=== PATIENT | female | born 1955 | race American Indian/Alaskan Native ===

== ENCOUNTER 2022-04-20 17:19 | Inpatient (IN) | payer SELFPAY ==
--- NOTE | 2022-04-20 18:01 | Emergency Department Report ---
ED General Adult HPI - General Chief complaint: Dyspnea/Respdistress Stated complaint: SOB PUI?: No Time Seen by Provider: 04/20/22 18:00 Source: EMS ( EMS documentation not available at time of chart dictation ), RN notes reviewed Mode of arrival: Stretcher Limitations: Physical Limitation - History of Present Illness Initial comments: The patient was evaluated in the emergency department for symptoms described in the history of present illness. He/she was evaluated in the context of the global COVID-19 pandemic, which necessitated consideration that the patient might be at risk for infection with the virus that causes COVID-19. Institutional protocols and algorithms that pertain to the evaluation of patients at risk for COVID-19 are in a state of rapid change based on information released by regulatory bodies including the CDC and federal and state organizations. These policies and algorithms were followed during the patient's care in the emergency department. Please note that these policies, procedures and recommendations changed on a rapid basis. This is a 67-year-old female. She has a history of body mass index of approximately 35, chronic respiratory failure, A. fib on Xarelto, COPD, diabetes, hypertension and high cholesterol. She is COVID-19 vaccinated and reports that she has received her booster. She thinks that she has a history of atrial fibrillation. She presents to the department today with a complaint of shortness of breath, sensation that she has water on her lungs, cough, wheezing. She has abdominal cramping associate with coughing. She was given magnesium, albuterol and steroids by EMS prior to arrival. She denies headache, neck pain, chest pain, vomiting, diarrhea, urinary symptoms. She also denies hematemesis and bright red blood per rectum. She sleeps at home by herself. She does report that she snores. She thinks that she may have lower extremity swelling. She denies dietary indiscretions. She has ran out of a few of her medications. She may also have a history of CHF but she is not for certain. -: Gradual, days(s) Severity scale (0 -10): 0 Consistency: constant Improves with: medication Worsens with: movement - Related Data Allergies Allergy/AdvReac Type Severity Reaction Status Date / Time No Known Allergies Allergy Verified 04/20/22 17:32 ED Review of Systems ROS: Stated complaint: SOB Other details as noted in HPI Constitutional: malaise, weakness. denies: fever ENT: congestion Respiratory: cough, shortness of breath Cardiovascular: denies: chest pain Gastrointestinal: abdominal pain. denies: hematemesis, melena, hematochezia Genitourinary: denies: dysuria Musculoskeletal: myalgia Neurological: weakness Hematological/Lymphatic: other (Denies loss of taste and smell). denies: easy bleeding ED Past Medical Hx - Past Medical History Previous Medical History?: Yes Hx Congestive Heart Failure: Yes Hx COPD: Yes Additional medical history: AICD, AFIB - Surgical History Hx Internal Defibrillator: Yes ED Physical Exam - General Limitations: No Limitations General appearance: alert, anxious, obese - Head Head exam: Present: atraumatic, normocephalic - Eye Eye exam: Present: normal appearance, EOMI. Absent: nystagmus - ENT ENT exam: Present: normal exam, normal orophraynx, mucous membranes moist, normal external ear exam - Neck Neck exam: Present: normal inspection, full ROM. Absent: tenderness, meningismus - Respiratory Respiratory exam: Present: respiratory distress, rales, rhonchi. Absent: stridor - Cardiovascular Cardiovascular Exam: Present: regular rate, irregular rhythm, JVD. Absent: bradycardia, tachycardia, systolic murmur, diastolic murmur, rubs, gallop - GI/Abdominal GI/Abdominal exam: Present: soft. Absent: distended, tenderness, guarding, rebound, rigid - Extremities Exam Extremities exam: Present: normal inspection, full ROM, pedal edema, other (2+ pulses noted in the bilateral upper and lower extremities. There is no palpable cord. negative Homans sign. Muscular compartments are soft. The pelvis is stable.). Absent: calf tenderness - Back Exam Back exam: Present: normal inspection. Absent: tenderness, CVA tenderness (R), CVA tenderness (L), paraspinal tenderness, vertebral tenderness - Neurological Exam Neurological exam: Present: alert, other (No facial droop. Tongue midline. Extraocular movements intact bilaterally. Facial sensation intact to light touch in V1, V2, V3 distribution bilaterally. 5 and a 5 strength in 4 extremities. Sensation intact to light touch in 4 extremities.). Absent: motor sensory deficit - Skin Skin exam: Present: warm, dry, intact, normal color. Absent: rash ED Course Vital Signs 04/20/22 04/20/22 04/20/22 17:24 17:41 17:45 Temperature 97.7 F Pulse Rate 96 H 76 70 Pulse Rate [ Anterior Bilateral Throughout] Respiratory 19 37 H 31 H Rate Respiratory Rate [Anterior Bilateral Throughout] Blood Pressure 110/55 Blood Pressure 125/81 [Left] O2 Sat by Pulse 97 96 97 Oximetry 04/20/22 04/20/22 04/20/22 18:00 18:09 19:05 Temperature Pulse Rate 81 Pulse Rate [ 91 H Anterior Bilateral Throughout] Respiratory 33 H Rate Respiratory 30 H Rate [Anterior Bilateral Throughout] Blood Pressure 110/55 Blood Pressure [Left] O2 Sat by Pulse 93 93 Oximetry - Reevaluation(s) Reevaluation #1: 04/20/22 18:45 Differential diagnosis, including but not limited to: COPD exacerbation, CHF exacerbation, pneumonia, cardiorenal syndrome Assessment and plan: 67-year-old female, currently maintained on Xarelto, who denies DVT and pulmonary embolism risk factors, who is compliant with Xarelto, with a known history of chronic respiratory failure, CHF and COPD, coming in with probable multifactorial respiratory failure exacerbation, likely secondary to CHF and COPD. 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 Obtain appropriate laboratory studies, EKG, x-ray the chest. Treat symptoms. Reassess Patient already received steroids 04/20/22 19:26 Dr Morenita Coreas to admit to IMS X-ray of the chest reviewed and appreciated. ED Medical Decision Making - Lab Data Result diagrams: 04/20/22 18:18 04/20/22 18:18 Vital Signs 04/20/22 04/20/22 04/20/22 17:24 17:41 17:45 Temperature 97.7 F Pulse Rate 96 H 76 70 Respiratory 19 37 H 31 H Rate Blood Pressure 110/55 Blood Pressure 125/81 [Left] O2 Sat by Pulse 97 96 97 Oximetry 04/20/22 04/20/22 18:00 18:09 Temperature Pulse Rate 81 Respiratory 33 H Rate Blood Pressure 110/55 Blood Pressure [Left] O2 Sat by Pulse 93 93 Oximetry Lab Results 04/20/22 04/20/22 04/20/22 Range/Units 18:18 18:18 18:18 WBC 11.7 H (4.5-11.0) K/mm3 RBC 4.34 (3.65-5.03) M/mm3 Hgb 13.3 (10.1-14.3) gm/dl Hct 40.7 (30.3-42.9) % MCV 94 (79-97) fl MCH 31 (28-32) pg MCHC 33 (30-34) % RDW 16.6 H (13.2-15.2) % Plt Count 144 (140-440) K/mm3 Lymph % (Auto) 10.4 L (13.4-35.0) % [place] % (Auto) 3.0 (0.0-7.3) % Eos % (Auto) 1.5 (0.0-4.3) % Baso % (Auto) 0.4 (0.0-1.8) % Lymph # (Auto) 1.2 (1.2-5.4) K/mm3 [place] # (Auto) 0.3 (0.0-0.8) K/mm3 Eos # (Auto) 0.2 (0.0-0.4) K/mm3 Baso # (Auto) 0.0 (0.0-0.1) K/mm3 Seg Neutrophils % 84.7 H (40.0-70.0) % Seg Neutrophils # 9.9 H (1.8-7.7) K/mm3 PT 23.9 H (12.2-14.9) Sec. INR 1.87 H (0.87-1.13) APTT 44.0 H (24.2-36.6) Sec. Sodium 140 (137-145) mmol/L Potassium 4.5 (3.6-5.0) mmol/L Chloride 109.5 H (98-107) mmol/L Carbon Dioxide 19 L (22-30) mmol/L Anion Gap 16 mmol/L BUN 22 H (7-17) mg/dL Creatinine 1.7 H (0.6-1.2) mg/dL Estimated GFR 30 ml/min BUN/Creatinine Ratio 13 % Glucose 98 (65-100) mg/dL Calcium 9.0 (8.4-10.2) mg/dL Magnesium 2.90 H (1.7-2.3) mg/dL Total Bilirubin 0.50 (0.1-1.2) mg/dL AST 19 (5-40) units/L ALT 23 (7-56) units/L Alkaline Phosphatase 130 H (35-129) units/L Troponin T < 0.010 (0.00-0.029) ng/mL NT-Pro-B Natriuret Pep (0-900) pg/mL Total Protein 6.8 (6.3-8.2) g/dL Albumin 3.6 L (3.9-5) g/dL Albumin/Globulin Ratio 1.1 % TSH (0.270-4.200) mlU/mL 04/20/22 04/20/22 Range/Units 18:18 18:18 WBC (4.5-11.0) K/mm3 RBC (3.65-5.03) M/mm3 Hgb (10.1-14.3) gm/dl Hct (30.3-42.9) % MCV (79-97) fl MCH (28-32) pg MCHC (30-34) % RDW (13.2-15.2) % Plt Count (140-440) K/mm3 Lymph % (Auto) (13.4-35.0) % [place] % (Auto) (0.0-7.3) % Eos % (Auto) (0.0-4.3) % Baso % (Auto) (0.0-1.8) % Lymph # (Auto) (1.2-5.4) K/mm3 [place] # (Auto) (0.0-0.8) K/mm3 Eos # (Auto) (0.0-0.4) K/mm3 Baso # (Auto) (0.0-0.1) K/mm3 Seg Neutrophils % (40.0-70.0) % Seg Neutrophils # (1.8-7.7) K/mm3 PT (12.2-14.9) Sec. INR (0.87-1.13) APTT (24.2-36.6) Sec. Sodium (137-145) mmol/L Potassium (3.6-5.0) mmol/L Chloride (98-107) mmol/L Carbon Dioxide (22-30) mmol/L Anion Gap mmol/L BUN (7-17) mg/dL Creatinine (0.6-1.2) mg/dL Estimated GFR ml/min BUN/Creatinine Ratio % Glucose (65-100) mg/dL Calcium (8.4-10.2) mg/dL Magnesium (1.7-2.3) mg/dL Total Bilirubin (0.1-1.2) mg/dL AST (5-40) units/L ALT (7-56) units/L Alkaline Phosphatase (35-129) units/L Troponin T (0.00-0.029) ng/mL NT-Pro-B Natriuret Pep 6933 H (0-900) pg/mL Total Protein (6.3-8.2) g/dL Albumin (3.9-5) g/dL Albumin/Globulin Ratio % TSH 0.936 (0.270-4.200) mlU/mL - EKG Data -: EKG Interpreted by Il - EKG Data 04/20/22 18:42 The EKG is interpreted at 17: 43 A. fib, rate 76 bpm. Normal axis, poor R wave progression, motion artifact, QTC 4 4 3 ms. This is an abnormal EKG. This is not a STEMI. PVCs noted. No prior EKGs available for comparison - Radiology Data Radiology results: pending, report reviewed, image reviewed CHEST 1 VIEW INDICATION / CLINICAL INFORMATION: Dyspnea. COMPARISON: None available. FINDINGS: SUPPORT DEVICES: Single lead pacemaker/defibrillator device is noted. HEART / MEDIASTINUM: Mild/moderate cardiomegaly. LUNGS / PLEURA: Mild to moderate interstitial pulmonary edema is present. I suspect very small pleural effusions are present. No pneumothorax. ADDITIONAL FINDINGS: No significant additional findings. IMPRESSION: 1. Cardiomegaly with mild to mode rate interstitial pulmonary edema is present. Signer Name: Nadia Cornelius MD Signed: 04/20/2022 5:37 PM Workstation Name: [id number] Critical care attestation.: If time is entered above; I have spent that time in minutes in the direct care of this critically ill patient, excluding procedure time. ED Disposition Clinical Impression: COPD with exacerbation Acute exacerbation of CHF (congestive heart failure) Qualifiers: Heart failure type: systolic Qualified Code(s): I50.23 - Acute on chronic systolic (congestive) heart failure Acute and chronic respiratory failure Qualifiers: Respiratory failure complication: hypoxia Qualified Code(s): J96.21 - Acute and chronic respiratory failure with hypoxia Disposition: 09 ADMITTED INPATIENT Is pt being admited?: Yes Does the pt Need Aspirin: No Condition: Fair Instructions: Chronic Obstructive Pulmonary Disease (ED)
--- NOTE | 2022-04-20 18:41 | XRay Report ---
CHEST 1 VIEW INDICATION / CLINICAL INFORMATION: Dyspnea. COMPARISON: None available. FINDINGS: SUPPORT DEVICES: Single lead pacemaker/defibrillator device is noted. HEART / MEDIASTINUM: Mild/moderate cardiomegaly. LUNGS / PLEURA: Mild to moderate interstitial pulmonary edema is present. I suspect very small pleura l effusions are present. No pneumothorax. ADDITIONAL FINDINGS: No significant additional findings. IMPRESSION: 1. Cardiomegaly with mild to moderate interstitial pulmonary edema is present. Signer Name: Nadia Cornelius MD Signed: 04/20/2022 6:37 PM Workstation Name: [id number]
[2022-04-20] MEDS ORDERED: ALBUTEROL 2.5 MG/3 ML NEBU IH ONE (18:46)
[2022-04-20] MEDS ORDERED: FUROSEMIDE 40 MG/4 ML INJ IV ONE (18:46)
[2022-04-20] MEDS ORDERED: IPRATROPIUM 0.02% NEBU 2.5 ML IH ONE (18:46)
[2022-04-20 19:03] LABS: Basophils % (Auto) 0.4 % (0.0-1.8); Eosinophils # (Auto) 0.2 K/mm3 (0.0-0.4); Eosinophils % (Auto) 1.5 % (0.0-4.3); Hematocrit 40.7 % (30.3-42.9); Hemoglobin 13.3 gm/dl (10.1-14.3); Lymphocytes # (Auto) 1.2 K/mm3 (1.2-5.4); Lymphocytes % (Auto) 10.4 % (13.4-35.0); Mean Corpuscular HGB Conc 33 % (30-34); Mean Corpuscular Volume 94 fl (79-97); Monocytes # (Auto) 0.3 K/mm3 (0.0-0.8); Platelet Count 144 K/mm3 (140-440); Red Blood Count 4.34 M/mm3 (3.65-5.03); Red Cell Distribution Width 16.6 % (13.2-15.2)
[2022-04-20 19:14] LABS: INR 1.87 (0.87-1.13)
[2022-04-20] MEDS ORDERED: DOXYCYCLINE HYCLATE 100 MG in SODIUM CHLORIDE 0.9% 250ML 250 ML IV NR (19:25)
--- NOTE | 2022-04-20 19:31 | History and Physical Report ---
History of Present Illness Chief complaint: I cannot breathe and my legs are swollen History of present illness: 67 YO Female with Obesity Hypoventilation Syndrome, HTN, DM, Metabolic Syndrome, COPD, HLD, Atrial Fib on Xarelto, CHF(EF 30%), Cardiomyopathy S/P ICD Placement, Chronic Respiratory Failure on Home Oxygen @3L via [place], GERD presents ED for evaluation. Patient reports I cannot breathe". Patient states that she had experienced shortness of breath, bilateral lower extremity edema, decreased exercise tolerance, dyspnea on exertion, as well as dyspnea at rest, as well as 10 pound weight gain over the past week with persistent and worsening symptoms over the same timeframe. Patient acknowledges orthopnea as well as paroxysmal nocturnal dyspnea. EMS was notified and upon arrival the patient was found to be in distress and subsequently placed on supplemental oxygen and transported to [facility] for further care and evaluation of the aforementioned symptoms. The patient was seen and evaluated in the emergency department. All lab and imaging studies reviewed. Patient was found to have a pulse oximetry of 87% on room air which is consistent with acute hypoxemic respiratory failure suspected secondary to CHF decompensation. Patient also found to have bilateral pulmonary edema on chest x-ray which is consistent with fluid overload. Patient admitted to telemetry and initiated on CHF protocol. Patient denies fever, chills, chest pain, palpitations, productive cough, skin rash, recent contact, or known exposure to COVID-19. No prior admission for review. All medication listed at time of admission has been reconciled. Advanced care planning conducted in ED. Past History Past Medical History: atrial fib, COPD, diabetes, GERD, heart failure, hypertension, hyperlipidemia, other (See HPI) Past Surgical History: Other (AICD placement) Social history: . denies: smoking, alcohol abuse, prescription drug abuse Family history: diabetes, hypertension Medications and Allergies Allergies Allergy/AdvReac Type Severity Reaction Status Date / Time No Known Allergies Allergy Verified 04/20/22 17:32 Active Meds: Active Medications Doxycycline Hyclate 100 mg/ (Sodium Chloride) 250 mls @ 250 mls/hr IV ONCE NR; Protocol Stop: 04/20/22 22:00 Review of Systems Constitutional: weight gain, weakness, no fever, no chills, no sweats, no anorexia, no fatigue Ears, nose, mouth and throat: no ear pain, no ear discharge, no tinnitis, no decreased hearing, no nose pain Breasts: no change in shape, no swelling, no mass Cardiovascular: chest pain, orthopnea, shortness of breath, dyspnea on exertion, paroxysmal nocturnal dyspnea, leg edema, decreased exercise tolerance Respiratory: no cough, no cough with sputum, no hemoptysis Gastrointestinal: no abdominal pain, no vomiting, no constipation, no hematemesis Genitourinary Female: no pelvic pain, no flank pain, no dysuria, no urinary frequency, no urgency Exam - Constitutional Vitals: Temp Pulse Resp BP Pulse Ox 97.7 F 91 H 30 H 110/55 93 04/20/22 17:24 04/20/22 19:05 04/20/22 19:05 04/20/22 18:00 04/20/22 18:09 General appearance: Present: mild distress - EENT Eyes: Present: PERRL ENT: hearing intact, clear oral mucosa - Neck Neck: Present: masses or JVD - Respiratory Respiratory effort: labored, accessory muscle use Respiratory: bilateral: diminished, rales - Cardiovascular Rhythm: irregularly irregular - Extremities Extremities: pulses symmetrical Extremity abnormal: edema Peripheral Pulses: within normal limits - Abdominal General gastrointestinal: Present: soft, non-tender, non-distended, normal bowel sounds Female genitourinary: Present: normal - Integumentary Integumentary: Present: clear, dry - Musculoskeletal Musculoskeletal: generalized weakness - Psychiatric Psychiatric: appropriate mood/affect, cooperative - Neurologic Neurologic: CNII-XII intact Results - Labs CBC & Chem 7: 04/20/22 18:18 Labs: Abnormal lab results 04/20/22 04/20/22 Range/Units 18:18 18:18 WBC 11.7 H (4.5-11.0) K/mm3 RDW 16.6 H (13.2-15.2) % Lymph % (Auto) 10.4 L (13.4-35.0) % Seg Neutrophils % 84.7 H (40.0-70.0) % Seg Neutrophils # 9.9 H (1.8-7.7) K/mm3 PT 23.9 H (12.2-14.9) Sec. INR 1.87 H (0.87-1.13) APTT 44.0 H (24.2-36.6) Sec. Assessment and Plan - Patient Problems (1) Acute exacerbation of CHF (congestive heart failure) Status: Acute Qualifiers: Heart failure type: systolic Qualified Code(s): I50.23 - Acute on chronic systolic (congestive) heart failure Plan to address problem: CHF protocol: Strict I's/O, monitoring output every shift, daily weight, afterload reduction, blood pressure control, echocardiogram ordered and pending at time of admission, thyroid panel, magnesium level, diuresis with Lasix, supplemental oxygen, pulse oximetry. (2) Acute and chronic respiratory failure Status: Acute Qualifiers: Respiratory failure complication: hypoxia Qualified Code(s): J96.21 - Acute and chronic respiratory failure with hypoxia Plan to address problem: Supplemental oxygen, pulse oximetry, nebulizer therapy, noninvasive positive pressure ventilation as clinically indicated, supportive care. Pulmonary toilet. Early ambulation. (3) Obesity hypoventilation syndrome Status: Acute Plan to address problem: Balanced diet, increase physical activity discharge, outpatient pulmonary follo w-up for sleep study. (4) Atrial fibrillation Status: Acute Qualifiers: Atrial fibrillation type: unspecified Qualified Code(s): I48.91 - Unspecified atrial fibrillation Plan to address problem: Continue therapeutic anticoagulation with Xarelto, rate currently controlled, (5) Hypertension Status: Acute Qualifiers: Hypertension type: primary hypertension Qualified Code(s): I10 - Essential (primary) hypertension Plan to address problem: Monitor blood pressure every shift, continue medical management. (6) Hyperlipidemia Status: Acute Qualifiers: Hyperlipidemia type: mixed hyperlipidemia Qualified Code(s): E78.2 - Mixed hyperlipidemia Plan to address problem: Low-cholesterol diet, statin therapy, supportive care. (7) Pulmonary edema Status: Acute Plan to address problem: Diuresis, supportive care, pulmonary toilet, early ambulation. (8) Metabolic syndrome Status: Acute Plan to address problem: Balanced diet, increase physical activity at discharge, weight reduction, g lucose control. (9) Diabetes Status: Acute Plan to address problem: Consistent carbohydrate diet, Accu-Chek, insulin protocol, hypoglycemia protocol. (10) DVT prophylaxis Status: Acute Plan to address problem: SCD to bilateral lower extremities while in bed, continue therapeutic anticoagulation. (11) Advance care planning Status: Acute Plan to address problem: Disease education done, care plan discussed, diagnosis discussed, prognosis discussed, patient is full code. Patient acknowledges understanding and agreement with current care plan, +30 minutes. (12) Preventative health care Status: Acute Plan to address problem: Patient counseled regarding weight reduction, blood pressure control, medication compliance, weight reduction, balanced diet, outpatient follow-up with primary care physician for all age and risk factor appropriate screening test. +30 minutes.
[2022-04-20] MEDS ORDERED: oxyCODONE /ACETAMINOPHEN 5-325MG TAB PO PRN (19:36)
[2022-04-20] MEDS ORDERED: HYDROmorphone 0.5 MG/0.5 ML INJ IV PRN (19:36)
[2022-04-20] MEDS ORDERED: ONDANSETRON 4 MG/2 ML INJ IV PRN (19:36)
[2022-04-20 19:44] LABS: Alanine Aminotransferase 23 units/L (7-56); Albumin 3.6 g/dL (3.9-5); BUN/Creatinine Ratio 13; Blood Urea Nitrogen 22 mg/dL (7-17); Hemolysis Index 9
[2022-04-20] MEDS: ACETAMINOPHEN 325 MG TAB PO PRN (23:16)
[2022-04-21] MEDS: FUROSEMIDE 40 MG/4 ML INJ IV SCH ×2 (05:32→17:48)
[2022-04-21] MEDS: ALBUTEROL 2.5 MG/3 ML NEBU IH PRN ×3 (10:00→21:39)
--- NOTE | 2022-04-21 10:37 | Electrocardiograph Report ---
[facility] Test Date: 2022-04-20 Test Time: 17:43:29 Pat Name: NATALIO WOLFF Department: Room: A459 1 Gender: F Library Services Assistant: ELLIE : [id number] Requested By: NIRAJ SANCHEZ Order Number: [id number] Reading MD: Aaron Mcclellan Measurements Intervals [place] Rate: 76 P: [place]: QRS: 55 QRSD: 125 T: 123 QT: 393 QTc: 443 Interpretive Statements Atrial fibrillation Ventricular premature complex Nonspecific intraventricular conduction delay Poor R wave progression Nonspecific ST and T abnormalities No previous ECG available for comparison Electronically Signed On 04-21-2022 10:36:35 EDT by Aaron Mcclellan
--- NOTE | 2022-04-21 10:41 | Progress Note ---
Assessment and Plan Assessment and plan: 67 YO Female with Obesity Hypoventilation Syndrome, HTN, DM, Metabolic Syndrome, COPD, HLD, Atrial Fib on Xarelto, CHF(EF 30%), Cardiomyopathy S/P ICD Placement, Chronic Respiratory Failure on Home Oxygen @3L via NC, GERD presents ED for evaluation of shortness of breath, bilateral lower extremity edema, decreased exercise tolerance, dyspnea on exertion, as well as dyspnea at rest, as well as 10 pound weight gain over the past week. Patient acknowledges orthopnea as well as paroxysmal nocturnal dyspnea. EMS was notified and upon arrival the patient was found to be in distress and subsequently placed on supplemental oxygen and transported to [facility] for further care. The patient was seen and evaluated in the emergency department. All lab and imaging studies reviewed. Patient was found to have a pulse oximetry of 87% on room air which is consistent with acute hypoxemic respiratory failure suspected secondary to CHF decompensation. Patient also found to have bilateral pulmonary edema on chest x-ray which is consistent with fluid overload. Patient admitted to telemetry and initiated on CHF protocol. Acute CHF exacerbation. Acute on chronic hypoxic respiratory failure Obesity hypoventilation syndrome Atrial fibrillation Hypertension Hyperlipidemia Pulmonary edema Diabetes mellitus type 2 04/21/2022. Follow-up echocardiogram to assess systolic and diastolic function. Consult cardiology for further evaluation. Continue IV diuresis. Creatinine is elevated at 1.7 and we do not have a baseline creatinine to compare. Check renal ultrasound. Repeat BMP in AM. If creatinine continues to rise, we will consider nephrology consultation History Interval history: No new issues overnight Hospitalist Physical - Constitutional Vitals: Temp Pulse Resp BP Pulse Ox 98.7 F 68 18 115/77 96 04/21/22 07:35 04/21/22 07:35 04/21/22 07:35 04/21/22 07:35 04/21/22 09:26 General appearance: Present: mild distress - EENT Eyes: Present: PERRL, EOM intact ENT: hearing intact, clear oral mucosa, dentition normal - Neck Neck: Present: supple, normal ROM - Respiratory Respiratory effort: normal Respiratory: bilateral: CTA - Cardiovascular Rhythm: regular Heart Sounds: Present: S1 & S2. Absent: gallop, rub - Extremities Extremities: no ischemia, No edema, Full ROM - Abdominal General gastrointestinal: soft, non-tender, non-distended, normal bowel sounds - Integumentary Integumentary: Present: clear, warm, dry - Neurologic Neurologic: CNII-XII intact, moves all extremities HEART Score - HEART Score Troponin: Troponin T < 0.010 ng/mL (0.00-0.029) 04/20/22 18:18 Results - Labs CBC & Chem 7: 04/20/22 18:18 04/20/22 18:18 Labs: Laboratory Last Values WBC 11.7 K/mm3 (4.5-11.0) H 04/20/22 18:18 RBC 4.34 M/mm3 (3.65-5.03) 04/20/22 18:18 Hgb 13.3 gm/dl (10.1-14.3) 04/20/22 18:18 Hct 40.7 % (30.3-42.9) 04/20/22 18:18 MCV 94 fl (79-97) 04/20/22 18:18 MCH 31 pg (28-32) 04/20/22 18:18 MCHC 33 % (30-34) 04/20/22 18:18 RDW 16.6 % (13.2-15.2) H 04/20/22 18:18 Plt Count 144 K/mm3 (140-440) 04/20/22 18:18 Lymph % (Auto) 10.4 % (13.4-35.0) L 04/20/22 18:18 [place] % (Auto) 3.0 % (0.0-7.3) 04/20/22 18:18 Eos % (Auto) 1.5 % (0.0-4.3) 04/20/22 18:18 Baso % (Auto) 0.4 % (0.0-1.8) 04/20/22 18:18 Lymph # (Auto) 1.2 K/mm3 (1.2-5.4) 04/20/22 18:18 [place] # (Auto) 0.3 K/mm3 (0.0-0.8) 04/20/22 18:18 Eos # (Auto) 0.2 K/mm3 (0.0-0.4) 04/20/22 18:18 Baso # (Auto) 0.0 K/mm3 (0.0-0.1) 04/20/22 18:18 Seg Neutrophils % 84.7 % (40.0-70.0) H 04/20/22 18:18 Seg Neutrophils # 9.9 K/mm3 (1.8-7.7) H 04/20/22 18:18 PT 23.9 Sec. (12.2-14.9) H 04/20/22 18:18 INR 1.87 (0.87-1.13) H 04/20/22 18:18 APTT 44.0 Sec. (24.2-36.6) H 04/20/22 18:18 Sodium 140 mmol/L (137-145) 04/20/22 18:18 Potassium 4.5 mmol/L (3.6-5.0) 04/20/22 18:18 Chloride 109.5 mmol/L (98-107) H 04/20/22 18:18 Carbon Dioxide 19 mmol/L (22-30) L 04/20/22 18:18 Anion Gap 16 mmol/L 04/20/22 18:18 BUN 22 mg/dL (7-17) H 04/20/22 18:18 Creatinine 1.7 mg/dL (0.6-1.2) H 04/20/22 18:18 Estimated GFR 30 ml/min 04/20/22 18:18 BUN/Creatinine Ratio 13 % 04/20/22 18:18 Glucose 98 mg/dL (65-100) 04/20/22 18:18 POC Glucose 123 mg/dL (70-105) H 04/21/22 07:43 Calcium 9.0 mg/dL (8.4-10.2) 04/20/22 18:18 Magnesium 2.90 mg/dL (1.7-2.3) H 04/20/22 18:18 Total Bilirubin 0.50 mg/dL (0.1-1.2) 04/20/22 18:18 AST 19 units/L (5-40) 04/20/22 18:18 ALT 23 units/L (7-56) 04/20/22 18:18 Alkaline Phosphatase 130 units/L (35-129) H 04/20/22 18:18 Troponin T < 0.010 ng/mL (0.00-0.029) 04/20/22 18:18 NT-Pro-B Natriuret Pep 6933 pg/mL (0-900) H 04/20/22 18:18 Total Protein 6.8 g/dL (6.3-8.2) 04/20/22 18:18 Albumin 3.6 g/dL (3.9-5) L 04/20/22 18:18 Albumin/Globulin Ratio 1.1 % 04/20/22 18:18 TSH 0.936 mlU/mL (0.270-4.200) 04/20/22 18:18 Torres/IV: Voiding Method External Female Catheter Active Medications - Current Medications Current Medications: Generic Name Dose Route Start Last Admin Trade Name Freq PRN Reason Stop Dose Admin Acetaminophen 650 mg 04/20/22 19:36 04/20/22 23:16 Acetaminophen 325 Mg Tab PO 650 mg Q4H PRN Administration Pain MILD(1-3)/Fever >100.5/RIOJAS Albuterol 2.5 mg 04/20/22 19:36 Albuterol 2.5 Mg/3 Ml Nebu IH Q4HRT PRN Shortness Of Breath Furosemide 40 mg 04/21/22 06:00 04/21/22 05:32 Furosemide 40 Mg/4 Ml Inj IV 40 mg BID@0600,1800 HARRIET Administration Hydromorphone HCl 0.5 mg 04/20/22 19:36 Hydromorphone 0.5 Mg/0.5 Ml Inj IV Q23H PRN Pain , Severe (7-10) Ondansetron HCl 4 mg 04/20/22 19:36 Ondansetron 4 Mg/2 Ml Inj IV Q8H PRN Nausea And Vomiting Oxycodone/Acetaminophen 1 tab 04/20/22 19:36 Oxycodone /Acetaminophen 5-325mg Tab PO Q16H PRN Pain, Moderate (4-6) Sodium Chloride 10 ml 04/20/22 22:00 04/21/22 09:45 Sodium Chloride 0.9% 10 Ml Flush Syringe IV 10 ml BID HARRIET Administration Sodium Chloride 10 ml 04/20/22 19:36 Sodium Chloride 0.9% 10 Ml Flush Syringe IV PRN PRN LINE FLUSH
[2022-04-21] MEDS ORDERED: DAPAGLIFLOZIN (NF) PROPANEDIOL 5 MG TAB PO SCH (12:00)
[2022-04-21] MEDS: ACETAMINOPHEN 325 MG TAB PO PRN ×2 (12:03→19:14)
[2022-04-21] MEDS: METOPROLOL TARTRATE 25 MG TAB PO SCH ×2 (13:04→21:18)
--- NOTE | 2022-04-21 13:50 | Consultation ---
History of Present Illness Consult date: 04/21/22 Requesting physician: ENDER MOYER History of present illness: Patient is a 67-year-old female with a past medical history of A. fib anticoagulated on Xarelto, HFrEF, cardiomyopathy s/p AICD, chronic respiratory failure on 3L O2 at home, hypertension, diabetes, obesity, who presents to the ED with a complaint of shortness of breath and dyspnea on exertion x2 weeks. Patient reports he is chronically short of breath however over this timeframe she noted she is significantly more short of breath and reports she cannot walk anywhere near as far she normally does. She reports that she is compliant with her medications however she does states she has been out of her Lasix for at least a week. She reports she is compliant with salt restrictions however admits that she does not believe she is compliant with fluid restriction. In the ED patient was found to have a pulse ox of 87% on room air, CXR showed mild to moderate pulmonary edema, and patient had elevated BNP. Patient reports shortness of breath, dyspnea on exertion, and bilateral lower extremity edema. Patient denies chest pain, PND, or orthopnea. Patient is previously unknown to our practice. Patient reports she follows with [facility]. Cardiology is consulted for CHF. Past History Past Medical History: atrial fib, COPD, diabetes, GERD, heart failure, hypertension, hyperlipidemia, other (See HPI) Past Surgical History: Other (AICD placement) Social history: , smoking (former smoker reports qiting several months ago). denies: alcohol abuse, prescription drug abuse Family history: diabetes, hypertension Medications and Allergies Allergies Allergy/AdvReac Type Severity Reaction Status Date / Time No Known Allergies Allergy Verified 04/20/22 17:32 Home Medications Medication Instructions Recorded Confirmed Last Taken Type Atorvastatin [Lipitor Tab] 40 mg PO QHS 04/21/22 04/21/22 04/19/22 21:00 History Dapagliflozin Propanediol [Farxiga] 10 mg PO DAILY 04/21/22 04/21/22 04/20/22 09:00 History Omeprazole 40 mg PO DAILY 04/21/22 04/21/22 04/20/22 09:00 History Rivaroxaban [Xarelto] 15 mg PO QDAY 04/21/22 04/21/22 04/20/22 09:00 History Tiotropium [place] [Spiriva 2.5 mcg IH BID 04/21/22 04/21/22 Unknown History Respimat] allopurinoL [Zyloprim] 100 mg PO DAILY 04/21/22 04/21/22 Unknown History lisinopriL [Lisinopril] 20 mg PO DAILY 04/21/22 04/21/22 04/19/22 21:00 History metFORMIN [Glucophage] 500 mg PO BID 04/21/22 04/21/22 Unknown History Active Meds: Active Medications Acetaminophen (Acetaminophen 325 Mg Tab) 650 mg PO Q4H PRN PRN Reason: Pain MILD(1-3)/Fever >100.5/RIOJAS Last Admin: 04/21/22 12:03 Dose: 650 mg Albuterol (Albuterol 2.5 Mg/3 Ml Nebu) 2.5 mg IH Q4HRT PRN PRN Reason: Shortness Of Breath Last Admin: 04/21/22 10:00 Dose: 2.5 mg Atorvastatin Calcium (Atorvastatin 40 Mg Tab) 40 mg PO QHS [facility] Furosemide (Furosemide 40 Mg/4 Ml Inj) 40 mg IV BID@0600,1800 [facility] Last Admin: 04/21/22 05:32 Dose: 40 mg Hydromorphone HCl (Hydromorphone 0.5 Mg/0.5 Ml Inj) 0.5 mg IV Q23H PRN PRN Reason: Pain , Severe (7-10) Metoprolol Tartrate (Metoprolol Tartrate 25 Mg Tab) 25 mg PO BID [facility] Last Admin: 04/21/22 13:04 Dose: 25 mg Ondansetron HCl (Ondansetron 4 Mg/2 Ml Inj) 4 mg IV Q8H PRN PRN Reason: Nausea And Vomiting Oxycodone/Acetaminophen (Oxycodone /Acetaminophen 5-325mg Tab) 1 tab PO Q16H PRN PRN Reason: Pain, Moderate (4-6) Rivaroxaban (Rivaroxaban 15 Mg Tab) 15 mg PO QPMDIAB [facility]; Protocol Sodium Chloride (Sodium Chloride 0.9% 10 Ml Flush Syringe) 10 ml IV BID [facility] Last Admin: 04/21/22 09:45 Dose: 10 ml Sodium Chloride (Sodium Chloride 0.9% 10 Ml Flush Syringe) 10 ml IV PRN PRN PRN Reason: LINE FLUSH Review of Systems Constitutional: no weight loss Ears, nose, mouth and throat: no nasal discharge, no sinus pressure, no sinus pain Cardiovascular: shortness of breath, dyspnea on exertion, leg edema, no chest p ain, no orthopnea Respiratory: shortness of breath, dyspnea on exertion Gastrointestinal: no abdominal pain, no nausea, no vomiting Musculoskeletal: no neck stiffness, no neck pain, no shooting arm pain Integumentary: no rash, no pruritis, no redness Neurological: no head injury, no transient paralysis, no paralysis Psychiatric: no anxiety, no memory loss Endocrine: no cold intolerance, no heat intolerance Hematologic/Lymphatic: no easy bruising, no easy bleeding Physical Examination Vital Signs Temp Pulse Resp BP Pulse Ox 97.7 F 96 H 19 125/81 97 04/20/22 17:24 04/20/22 17:24 04/20/22 17:24 04/20/22 17:24 04/20/22 17:24 General appearance: no acute distress HEENT: Positive: PERRL Neck: Positive: trachea midline Cardiac: Positive: irregularly irregular Lungs: Positive: Decreased Breath Sounds, Wheezes Neuro: Positive: Grossly Intact Abdomen: Positive: Soft Skin: Negative: Rash, Suspicious Lesions, Ulceration Extremities: Present: upper extr. pulses, edema Results 04/20/22 18:18 04/20/22 18:18 Cardiac Enzymes 04/20/22 Range/Units 18:18 AST 19 (5-40) units/L Coagulation 04/20/22 Range/Units 18:18 PT 23.9 H (12.2-14.9) Sec. INR 1.87 H (0.87-1.13) APTT 44.0 H (24.2-36.6) Sec. CBC 04/20/22 Range/Units 18:18 WBC 11.7 H (4.5-11.0) K/mm3 RBC 4.34 (3.65-5.03) M/mm3 Hgb 13.3 (10.1-14.3) gm/dl Hct 40.7 (30.3-42.9) % Plt Count 144 (140-440) K/mm3 Lymph # (Auto) 1.2 (1.2-5.4) K/mm3 [place] # (Auto) 0.3 (0.0-0.8) K/mm3 Eos # (Auto) 0.2 (0.0-0.4) K/mm3 Baso # (Auto) 0.0 (0.0-0.1) K/mm3 Comprehensive Metabolic Panel 04/20/22 Range/Units 18:18 Sodium 140 (137-145) mmol/L Potassium 4.5 (3.6-5.0) mmol/L Chloride 109.5 H (98-107) mmol/L Carbon Dioxide 19 L (22-30) mmol/L BUN 22 H (7-17) mg/dL Creatinine 1.7 H (0.6-1.2) mg/dL Glucose 98 (65-100) mg/dL Calcium 9.0 (8.4-10.2) mg/dL AST 19 (5-40) units/L ALT 23 (7-56) units/L Alkaline Phosphatase 130 H (35-129) units/L Total Protein 6.8 (6.3-8.2) g/dL Albumin 3.6 L (3.9-5) g/dL - Imaging and Cardiology Echo: report reviewed EKG: report reviewed, image reviewed EKG interpretations - Telemetry EKG Rhythm: Atrial Fibrillation - EKG Supraventricular dysrhythmia: atrial fibrillation AV and intraventricular conduction: intraventricular conducti Repolarization changes or abnormalities: nonspecific abnormality, ST segment, and/or T wave Assessment and Plan Patient is a 67-year-old female with a past medical history of A. fib anticoagulated on Xarelto, HFrEF, cardiomyopathy s/p AICD, chronic respiratory failure on 3L O2 at home, hypertension, diabetes, obesity, who presents to the ED with a complaint of shortness of breath and dyspnea on exertion x2 weeks. Acute on chronic hypoxic respiratory failure Acute on chronic systolic heart failure A. fib Cardiomyopathy s/p AICD Hypertension Diabetes MAYELA? Hyperlipidemia Obesity Echo 04/20/2022-EF 10 to 15%. LV is moderately dilated. Mild mitral regurgitation. Mild to moderate tricuspid regurgitation. Moderate pulmonary hypertension. No pericardial effusion Plan: EKG shows A. fib rate 76 with PVC. Nonspecific IVCD. Nonspecific ST-T abnormality. Troponin negative x1. Patient denies any complaints of chest pain BNP noted to be elevated and patient has bilateral lower extremity edema. Patient appears to be having good urine output. Agree with diuresis with Lasix 40 mg IV twice daily Strict I&O's, repeat BMP in the a.m., and close monitoring of renal If patient's creatinine continues to rise primary team may wish to consider nephrology consult Resume anticoagulation with Xarelto Patient appears to be prescribed metoprolol 200 XL mg daily however heart rate is currently controlled and patient has soft BP. Will initiate metoprolol 25 mg p.o. twice daily Resume outpatient Farxiga 10 mg p.o. daily Resume atorvastatin 40 mg p.o. nightly Will hold ANTONIO or ARB due to renal function Discussed importance of medication, fluid restriction, and diet compliance with patient Discussed plan of care patient verbalized standing and acknowledgment Patient conjunction with Dr. Monsivais who agrees with plan of care - Patient Problems (1) Acute on chronic HFrEF (heart failure with reduced ejection fraction) Current Visit: Yes Status: Acute (2) Cardiomyopathy Current Visit: Yes Status: Acute (3) Automatic implantable cardioverter-defibrillator in situ Current Visit: Yes Status: Acute (4) Acute and chronic respiratory failure Current Visit: Yes Status: Acute (5) Atrial fibrillation Current Visit: No Status: Acute Qualifiers: Atrial fibrillation type: unspecified Qualified Code(s): I48.91 - Unspecified atrial fibrillation (6) Diabetes Current Visit: No Status: Acute (7) Hyperlipidemia Current Visit: No Status: Acute Qualifiers: Hyperlipidemia type: mixed hyperlipidemia Qualified Code(s): E78.2 - Mixed hyperlipidemia (8) Hypertension Current Visit: No Status: Acute Qualifiers: Hypertension type: primary hypertension Qualified Code(s): I10 - Essential (primary) hypertension (9) Pulmonary edema Current Visit: No Status: Acute
[2022-04-21 14:25] LABS: Hemoglobin 13.1 gm/dl (10.1-14.3); Mean Corpuscular HGB Conc 32 % (30-34); Mean Corpuscular Volume 93 fl (79-97); Platelet Count 160 K/mm3 (140-440); Red Cell Distribution Width 16.7 % (13.2-15.2)
[2022-04-21 14:30] LABS: INR 1.4 (0.87-1.13)
[2022-04-21 14:31] LABS: Partial Thromboplastin Time 35.9 Sec. (24.2-36.6)
[2022-04-21] MEDS: RIVAROXABAN 15 MG TAB PO SCH (17:48)
[2022-04-22] MEDS: FUROSEMIDE 40 MG/4 ML INJ IV SCH (06:06)
[2022-04-22] MEDS: ALBUTEROL 2.5 MG/3 ML NEBU IH PRN (07:30)
[2022-04-22] MEDS ORDERED: ALBUTEROL 2.5 MG/3 ML NEBU IH PRN (08:00)
[2022-04-22] MEDS: METOPROLOL TARTRATE 25 MG TAB PO SCH (09:24)
--- NOTE | 2022-04-22 09:35 | Discharge Summary ---
Providers - Providers Date of Admission: 04/20/22 19:36 Date of discharge: 04/22/22 Attending physician: ENDER MOYER 04/21/22 10:40 Consult to Physician [CONS] Routine Comment: Consulting Provider: JENAE BASS Physician Instructions: Reason For Exam: CHF Primary care physician: DAIRY NUTRITION CONSULTANT Hospitalization Reason for admission: CHF exac Condition: Fair Hospital course: 67 YO Female with Obesity Hypoventilation Syndrome, HTN, DM, Metabolic Syndrome, COPD, HLD, Atrial Fib on Xarelto, CHF(EF 30%), Cardiomyopathy S/P ICD Placement, Chronic Respiratory Failure on Home Oxygen @3L via [place], GERD presents ED for evaluation of shortness of breath, bilateral lower extremity edema, decreased exercise tolerance, dyspnea on exertion, as well as dyspnea at rest, as well as 10 pound weight gain over the past week. Patient acknowledges orthopnea as well as paroxysmal nocturnal dyspnea. EMS was notified and upon arrival the patient was found to be in distress and subsequently placed on supplemental oxygen and transported to [facility] for further care. The patient was seen and evaluated in the emergency department. All lab and imaging studies reviewed. Patient was found to have a pulse oximetry of 87% on room air which is consistent with acute hypoxemic respiratory failure suspected secondary to CHF decompensation. Patient also found to have bilateral pulmonary edema on chest x-ray which is consistent with fluid overload. Patient admitted to telemetry and initiated on CHF protocol. The patient was admitted with diagnosis of acute on chronic systolic heart failure, acute on chronic hypoxic respiratory failure, obesity hypoventilation syndrome, chronic atrial fibrillation, hypertension, hyperlipidemia, pulmonary edema, diabetes mellitus type 2. Patient was treated with IV diuresis and seen by cardiology. Echocardiogram revealed LVEF 15-15% with left ventricular diastolic function indeterminant. Patient also noted to have RVSP of 50 mmHg indicative of moderate pulmonary hypertension. Creatinine was elevated at 1.7 and remained at 1.7 during the hospital stay. Patient likely has a component of chronic kidney disease. Patient returned back to her baseline cardiac status and oxygenation status with 3 L of oxygen satting at 97%. Patient is felt to have received maximal hosp ital benefit and will be discharged home. Dedicated discharge time 35 minutes Disposition: 01 HOME / SELF CARE / HOMELESS Final Discharge Diagnosis (Prints w/discharge instructions): Acute on chronic hypoxic respiratory failure, acute on chronic systolic heart failure, atrial fib, COPD, diabetes, GERD, heart failure, hypertension, hyperlipidemia, Cardiomyopathy S/P ICD Placement Core Measure Documentation - Palliative Care Palliative Care/ Comfort Measures: Not Applicable - Core Measures Any of the following diagnoses?: none Exam - Constitutional Vitals: Temp Pulse Resp BP Pulse Ox 97.3 F L 87 20 123/68 97 04/22/22 03:49 04/22/22 09:24 04/22/22 07:30 04/22/22 09:24 04/22/22 07:35 General appearance: Present: no acute distress, well-nourished - EENT Eyes: Present: PERRL ENT: hearing intact, clear oral mucosa - Neck Neck: Present: supple, normal ROM - Respiratory Respiratory effort: normal Respiratory: bilateral: CTA - Cardiovascular Heart Sounds: Present: S1 & S2. Absent: rub, click - Extremities Extremities: pulses symmetrical, No edema Peripheral Pulses: within normal limits - Abdominal General gastrointestinal: Present: soft, non-tender, non-distended, normal bowel sounds Female genitourinary: Present: normal - Integumentary Integumentary: Present: clear, warm, dry - Musculoskeletal Musculoskeletal: gait normal, strength equal bilaterally - Psychiatric Psychiatric: appropriate mood/affect, intact judgment & insight - Neurologic Neurologic: CNII-XII intact, moves all extremities Plan Activity: advance as tolerated Weight Bearing Status: Weight Bear as Tolerated Diet: low fat, low cholesterol, low salt, diabetic Special Instructions: restrict fluid intake to (1L) Follow up with: PRIMARY CARE,MD [Primary Care Provider] - 7 Days Prescriptions: Dapagliflozin Propanediol [Farxiga] 10 mg PO DAILY #30 Furosemide [Lasix TAB] 40 mg PO QDAY #30 tab-cap lisinopriL [Lisinopril] 20 mg PO DAILY #30 Magnesium Oxide 500 mg PO BID #60 cap Metoprolol Succinate [Toprol Xl] 200 mg PO QDAY #30 tab Rivaroxaban [Xarelto] 15 mg PO QDAY #30 tab allopurinoL [Zyloprim] 100 mg PO DAILY #30
[2022-04-22] MEDS ORDERED: NON-FORMULARY EACH (Metoprolol Succinate [Toprol Xl] 200 MG Tab.Er.24h) PO SCH (10:00)
[2022-04-22] MEDS ORDERED: NON-FORMULARY EACH (Rivaroxaban 15 MG Tablet) PO SCH (10:00)
[2022-04-22] MEDS ORDERED: allopurinoL 100 MG TAB PO SCH (10:00)
[2022-04-22] MEDS ORDERED: NON-FORMULARY EACH (Tiotropium Bromide [Spiriva Respimat] 4 GM Mist.Inhal) IH SCH (10:00)
[2022-04-22] MEDS: ACETAMINOPHEN 325 MG TAB PO PRN (10:00)
[2022-04-22] MEDS ORDERED: FUROSEMIDE 40 MG TAB PO SCH (10:00)
[2022-04-22] MEDS ORDERED: LISINOPRIL 20 MG TAB PO SCH (10:00)
[2022-04-22] MEDS ORDERED: NON-FORMULARY EACH (Omeprazole [Omeprazole] 40 MG Capsule.Dr) PO SCH (10:00)
[2022-04-22] MEDS ORDERED: NON-FORMULARY EACH (Dapagliflozin Propanediol [Farxiga] 10 MG Tablet) PO SCH (10:00)
[2022-04-22] MEDS ORDERED: MAGNESIUM OXIDE 500 MG PO SCH (10:00)
[2022-04-22] MEDS ORDERED: DAPAGLIFLOZIN 10 MG TABLET PO SCH (10:00)
[2022-04-22 10:25] LABS: Basophils % (Auto) 0.4 % (0.0-1.8); Eosinophils % (Auto) 0.2 % (0.0-4.3); Hematocrit 44.2 % (30.3-42.9); Hemoglobin 13.9 gm/dl (10.1-14.3); Lymphocytes % (Auto) 14.7 % (13.4-35.0); Mean Corpuscular HGB Conc 31 % (30-34); Mean Corpuscular Volume 94 fl (79-97); Mean Platelet Volume 11.2 fl (6-12); Monocytes % (Auto) 4.3 % (0.0-7.3); Platelet Count 171 K/mm3 (140-440); Red Blood Count 4.69 M/mm3 (3.65-5.03); Red Cell Distribution Width 16.8 % (13.2-15.2)
[2022-04-22 10:26] LABS: Basophils # (Auto) 0.1 K/mm3 (0.0-0.1); Lymphocytes # (Auto) 1.9 K/mm3 (1.2-5.4); Monocytes # (Auto) 0.6 K/mm3 (0.0-0.8)
[2022-04-22 10:54] LABS: Calcium 9.3 mg/dL (8.4-10.2)
[2022-04-22] MEDS ORDERED: MAGNESIUM OXIDE 400 MG TAB PO SCH (11:00)
[2022-04-22] MEDS ORDERED: PANTOPRAZOLE 40 MG TAB PO SCH (11:00)
[2022-04-22] MEDS ORDERED: METOPROLOL SUCCINATE XL 100 MG TAB PO SCH (11:00)
[2022-04-22] MEDS ORDERED: TIOTROPIUM 18 MCG CAP INHALATION IH SCH (12:00)
[2022-04-22] MEDS: FUROSEMIDE 40 MG TAB PO SCH ×2 (12:10→17:01)
[2022-04-22] MEDS: metFORMIN 500 MG TAB PO SCH ×2 (12:13→17:03)
--- NOTE | 2022-04-22 12:17 | Progress Note ---
Assessment and Plan Patient is a 67-year-old female with a past medical history of A. fib anticoagulated on Xarelto, HFrEF, cardiomyopathy s/p AICD, chronic respiratory failure on 3L O2 at home, hypertension, diabetes, obesity, who presents to the ED with a complaint of shortness of breath and dyspnea on exertion x2 weeks. Acute on chronic hypoxic respiratory failure Acute on chronic systolic heart failure A. fib Cardiomyopathy s/p AICD Hypertension Diabetes MAYELA? Hyperlipidemia Obesity Echo 04/20/2022-EF 10 to 15%. LV is moderately dilated. Mild mitral regurgitation. Mild to moderate tricuspid regurgitation. Moderate pulmonary hypertension. No pericardial effusion Plan: Patient reports feeling significantly better and states that she is no longer short of breath. Patient's lung sounds are clear and no bilateral lower extremity edema Continue anticoagulation with Xarelto Continue GDMT Discussed importance of medication, fluid restriction, and diet compliance with patient Discussed plan of care patient verbalized standing and acknowledgment Cardiac status otherwise stable Patient should follow their Shaun primary office system analyst in 1 to 2 weeks after discharge Patient conjunction with Dr. Monsivais who agrees with plan of care - Patient Problems (1) Acute on chronic HFrEF (heart failure with reduced ejection fraction) Current Visit: Yes Status: Acute (2) Cardiomyopathy Current Visit: Yes Status: Acute (3) Automatic implantable cardioverter-defibrillator in situ Current Visit: Yes Status: Acute (4) Acute and chronic respiratory failure Current Visit: Yes Status: Acute (5) Atrial fibrillation Current Visit: No Status: Acute Qualifiers: Atrial fibrillation type: unspecified Qualified Code(s): I48.91 - Unspecified atrial fibrillation (6) Diabetes Current Visit: No Status: Acute (7) Hyperlipidemia Current Visit: No Status: Acute Qualifiers: Hyperlipidemia type: mixed hyperlipidemia Qualified Code(s): E78.2 - Mixed hyperlipidemia (8) Hypertension Current Visit: No Status: Acute Qualifiers: Hypertension type: primary hypertension Qualified Code(s): I10 - Essential (primary) hypertension (9) Pulmonary edema Current Visit: No Status: Acute Subjective Date of service: 04/22/22 Principal diagnosis: Acute on chronic HFrEF Interval history: Patient resting in bed in no acute distress. Patient reports feeling significantly better this a.m. A. fib 70s to 80s on monitor with few PVCs Objective Vital Signs Temp Pulse Pulse Resp Resp BP Pulse Ox 04/22/22 11:28 18 95 04/22/22 09:24 87 123/68 04/22/22 08:50 98.1 F 86 18 96 04/22/22 07:35 97 04/22/22 07:30 92 H 20 04/22/22 07:29 97 04/22/22 03:49 97.3 F L 70 16 114/71 98 04/22/22 00:00 96 04/21/22 23:45 97.5 F L 83 19 121/76 97 04/21/22 21:42 85 16 04/21/22 21:41 96 04/21/22 21:18 88 04/21/22 19:12 97.4 F L 74 20 105/62 96 04/21/22 16:49 98.4 F 81 18 122/69 98 04/21/22 15:28 73 04/21/22 15:13 96 H 20 - Physical Examination HEENT: Positive: PERRL Neck: Positive: trachea midline Cardiac: Positive: irregularly irregular Lungs: Positive: Normal Breath Sounds Neuro: Positive: Grossly Intact Abdomen: Positive: Soft Skin: Negative: Rash, Suspicious Lesions, Ulceration Extremities: Present: upper extr. pulses, edema - Labs and Meds Coagulation 04/21/22 Range/Units 11:47 PT 18.8 H (12.2-14.9) Sec. INR 1.40 H (0.87-1.13) APTT 35.9 (24.2-36.6) Sec. CBC 04/21/22 04/22/22 Range/Units 11:47 09:33 WBC 13.6 H 13.2 H (4.5-11.0) K/mm3 RBC 4.40 4.69 (3.65-5.03) M/mm3 Hgb 13.1 13.9 (10.1-14.3) gm/dl Hct 41.0 44.2 H (30.3-42.9) % Plt Count 160 171 (140-440) K/mm3 Lymph # (Auto) 1.9 (1.2-5.4) K/mm3 [place] # (Auto) 0.6 (0.0-0.8) K/mm3 Eos # (Auto) 0.0 (0.0-0.4) K/mm3 Baso # (Auto) 0.1 (0.0-0.1) K/mm3 Comprehensive Metabolic Panel 04/21/22 04/22/22 Range/Units 11:47 09:33 Sodium 138 (137-145) mmol/L Potassium 3.7 (3.6-5.0) mmol/L Chloride 95.6 L (98-107) mmol/L Carbon Dioxide 30 D (22-30) mmol/L BUN 34 H (7-17) mg/dL Creatinine 1.7 H 1.6 H (0.6-1.2) mg/dL Glucose 194 H (65-100) mg/dL Calcium 9.3 (8.4-10.2) mg/dL - Imaging and Cardiology EKG: report reviewed, image reviewed Echo: report reviewed - Telemetry EKG Rhythm: Atrial Fibrillation - EKG Supraventricular dysrhythmia: atrial fibrillation AV and intraventricular conduction: intraventricular conducti Repolarization changes or abnormalities: nonspecific abnormality, ST segment, and/or T wave
--- NOTE | 2022-04-22 13:53 | Ultrasound Report ---
ULTRASOUND RENAL INDICATION / CLINICAL INFORMATION: MAYELA. COMPARISON: None available. FINDINGS: RIGHT KIDNEY: Length = 9.5 cm. - Echogenicity: Normal. - Parenchymal Thickness: Normal. - Hydronephrosis: None. - Cyst / Mass: None. - Stones: None seen. LEFT KIDNEY: Length = 9.9 cm. - Echogenicity: Normal. - Parenchymal Thickness: Mild thinning. - Hydronephrosis: None. - Cyst / Mass: None. - Stones: None seen. URINARY BLADDER: No significant abnormality. FREE FLUID: None. ADDITIONAL FINDINGS: None. IMPRESSION: 1. There is mild parenchymal thinning on the left. There is no hydronephrosis. No focal renal lesions are seen. Signer Name: Nirmal Christian MD Signed: 04/22/2022 1:49 PM Workstation Name: [id number]
[2022-04-22] MEDS ORDERED: IPRATROPIUM/ALBUTEROL SULFATE 3 ML AMPUL.NEB IH SCH (14:00)
[2022-04-22 15:36] VITALS: BP 100/59
[2022-04-22] MEDS: RIVAROXABAN 15 MG TAB PO SCH (17:01)
[2022-04-22] MEDS ORDERED: ARFORMOTEROL 15 MCG/2 ML NEBU IH SCH (20:00)
[2022-04-22] MEDS ORDERED: BUDESONIDE 0.5 MG/2 ML NEBU IH SCH (20:00)
== END 2022-04-22 17:15 | disposition home or self-care (01) | DRG 291 ==
LOC: ED 17:19 → 4A 19:36
PROVIDERS: ADMIT Internal Medicine; ATTEND Hospitalist
DX: I11.0 Hypertensive heart disease with heart failure (principal); I50.23 Acute on chronic systolic (congestive) heart failure; J96.21 Acute and chronic respiratory failure with hypoxia; J44.1 Chronic obstructive pulmonary disease with (acute) exacerbation; E66.2 Morbid (severe) obesity with alveolar hypoventilation; I48.91 Unspecified atrial fibrillation; E11.9 Type 2 diabetes mellitus without complications; E78.00 Pure hypercholesterolemia, unspecified; E88.81 Metabolic syndrome and other insulin resistance; I42.9 Cardiomyopathy, unspecified; Z68.34 Body mass index [BMI] 34.0-34.9, adult; E78.2 Mixed hyperlipidemia; K21.9 Gastro-esophageal reflux disease without esophagitis; Z83.3 Family history of diabetes mellitus; Z95.810 Presence of automatic (implantable) cardiac defibrillator; Z82.49 Family history of ischemic heart disease and other diseases of the circulatory system
CPT/HCPCS: 36415; 71045; 76770; 80048; 80053; 82565; 82962; 83735; 83880; 84443; 84484; 85025; 85027; 85610; 85730; 93005; 93306; 94640; 94644; 94760; 96374; G0378; J3490; C8929; J1940